=== PATIENT | female | born 1935 | race Caucasian/White ===

== ENCOUNTER 2021-10-17 16:47 | Emergency (ER) | payer OTHER ==
[~2021-10-17] VITALS: Ht 137.2 cm; Wt 41.7 kg
--- NOTE | ~2021-10-17 | EMS ---
[address] [address] EMS Patient Care Report Name: KAYE DOCKERY Room #: DEP LILIBETH Hartmann#: [id number] Admission: 10/17/21 Attend Phys: Discharge: 10/17/21 Date of : 34 Report #: [id number] THIS REPORT FOR: //name// Report Transmitted: 10/18/2021 00:37 EMS Care Summary [facility] MED-ACT Incident [id number] @ 10/17/2021 16:09 Incident Location [address] [place] [address] Patient KAYE DOCKERY Female, 86 Years 1935 Patient Address [address] [place] [address] Patient History Hypertension (HTN),Alzheimer's, Patient Medications Levothyroxine, Losartan, Amlodipine, Memantine, Chief Complaint head injury Disposition Transported No Lights/[place] Dispatch Reason Falls Transported To [facility] Narrative We were dispatched to the listed location for a fall. Upon our arrival, we found the patient lying on the floor and in the care of FD. The patient was alert and confused which is her baseline mental status. There was a small amount of blood on the back of the patient's head and floor. The patient is an 86 year old female who according to her family, slipped and [address] [address] EMS Patient Care Report Name: KAYE DOCKERY Room #: DEP ER [facility]#: [id number] Admission: 10/17/21 Attend Phys: Discharge: 10/17/21 Date of : 34 Report #: [id number] fell backwards. The patient struck the back of her head causing injury to the occiput. The patient has a history of Alzheimer's disease and is [place]ian speaking which created a significant barrier. The patient's family was able to communicate with her and they reported that the patient was at her baseline mental status. The patient did not lose consciousness, according to her family. The patient did not provide any information. While performing an exam, the patient did not provide any panful response. We were requested to transport the patient to [facility] for an evaluation and treatment. After an assessment and vitals, the patient was lifted off the floor to the cot. Then the patient was secured and transferred to the unit. There were no changes in her condition and care was transferred without incident. Initial Vitals @16:38P: 90,R: 16,BP: 170/85,SpO2: 98, @16:42P: 84,R: 16,BP: 152/85,SpO2: 98, @16:22P: 90,R: 16,BP: 161/92,SpO2: 98, @16:31P: 98,R: 16,BP: 193/88,Temp: 97.6F,SpO2: 98, Impression Injury Procedures @16:20 ALS Assessment Response: UnchangedSucceeded Timeline 16:07,Call Received 16:07,Psap Call 16:09,Dispatched 16:10,En Route 16:17,On Scene 16:19,At Patient 16:20,ALS Assessment,Response: UnchangedSucceeded, 16:22,BP: 161/92 M,PULSE: 90,RR: 16 R,SPO2: 98 Ox,ETCO2: ,BG: ,PAIN: ,GCS: , 16:31,BP: 193/88 M,PULSE: 98,RR: 16 R,SPO2: 98 Ox,ETCO2: ,BG: ,PAIN: ,GCS: , 16:34,Depart Scene 16:38,BP: 170/85 M,PULSE: 90,RR: 16 R,SPO2: 98 Ox,ETCO2: ,BG: ,PAIN: ,GCS: , 16:42,BP: 152/85 M,PULSE: 84,RR: 16 R,SPO2: 98 Ox,ETCO2: ,BG: ,PAIN: ,GCS: , 16:43,At Destination 17:02,Call Closed Disclaimer v1.1 Copyright 2021 [employer] This EMS Care Summary contains data elements from the applicable legal record [address] [address] EMS Patient Care Report Name: SARKISITZKAYE Room #: DEP LILIBETH Hartmann#: [id number] Admission: 10/17/21 Attend Phys: Discharge: 10/17/21 Date of : 34 Report #: [id number] (which may be displayed differently). It is designed to provide pertinent information for the following purposes: continuity of care, clinical quality, and state data reporting. The complete legal record is available to ED staff and administrators of the receiving hospital in [facility]'s Patient Tracker. All data is provided "as is."
--- NOTE | ~2021-10-17 | EMS ---
[address] [address] EMS Patient Care Report Name: KAYE DOCKERY Room #: DEP LILIBETH Hartmann#: [id number] Admission: 10/17/21 Attend Phys: Discharge: 10/17/21 Date of : 34 Report #: [id number] THIS REPORT FOR: //name// Report Transmitted: 10/17/2021 23:34 EMS Care Summary [facility] MED-ACT Incident [id number] @ 10/17/2021 16:09 Incident Location [address] [place] [address] Patient KAYE DOCKERY Female, 86 Years 1935 Patient Address [address] [place] [address] Patient History Hypertension (HTN),Alzheimer's, Patient Medications Levothyroxine, Losartan, Amlodipine, Memantine, Chief Complaint head injury Disposition Transported No Lights/[place] Dispatch Reason Falls Transported To [facility] Narrative We were dispatched to the listed location for a fall. Upon our arrival, we found the patient lying on the floor and in the care of FD. The patient was alert and confused which is her baseline mental status. There was a small amount of blood on the back of the patient's head and floor. The patient is an 86 year old female who according to her family, slipped and [address] [address] EMS Patient Care Report Name: KAYE DOCKERY Room #: DEP [facility]#: [id number] Admission: 10/17/21 Attend Phys: Discharge: 10/17/21 Date of : 34 Report #: [id number] fell backwards. The patient struck the back of her head causing injury to the occiput. The patient has a history of Alzheimer's disease and is Sudanese speaking which created a significant barrier. The patient's family was able to communicate with her and they reported that the patient was at her baseline mental status. The patient did not lose consciousness, according to her family. The patient did not provide any information. While performing an exam, the patient did not provide any panful response. We were requested to transport the patient to [facility] for an evaluation and treatment. After an assessment and vitals, the patient was lifted off the floor to the cot. Then the patient was secured and transferred to the unit. There were no changes in her condition and care was transferred without incident. Initial Vitals @16:38P: 90,R: 16,BP: 170/85,SpO2: 98, @16:42P: 84,R: 16,BP: 152/85,SpO2: 98, @16:22P: 90,R: 16,BP: 161/92,SpO2: 98, @16:31P: 98,R: 16,BP: 193/88,Temp: 97.6F,SpO2: 98, Impression Injury Procedures @16:20 ALS Assessment Response: UnchangedSucceeded Timeline 16:07,Call Received 16:07,Psap Call 16:09,Dispatched 16:10,En Route 16:17,On Scene 16:19,At Patient 16:20,ALS Assessment,Response: UnchangedSucceeded, 16:22,BP: 161/92 M,PULSE: 90,RR: 16 R,SPO2: 98 Ox,ETCO2: ,BG: ,PAIN: ,GCS: , 16:31,BP: 193/88 M,PULSE: 98,RR: 16 R,SPO2: 98 Ox,ETCO2: ,BG: ,PAIN: ,GCS: , 16:34,Depart Scene 16:38,BP: 170/85 M,PULSE: 90,RR: 16 R,SPO2: 98 Ox,ETCO2: ,BG: ,PAIN: ,GCS: , 16:42,BP: 152/85 M,PULSE: 84,RR: 16 R,SPO2: 98 Ox,ETCO2: ,BG: ,PAIN: ,GCS: , 16:43,At Destination 17:02,Call Closed Disclaimer v1.1 Copyright 2021 [employer] This EMS Care Summary contains data elements from the applicable legal record [address] [address] EMS Patient Care Report Name: SARKISKAYE Room #: DEP LILIBETH Hartmann#: [id number] Admission: 10/17/21 Attend Phys: Discharge: 10/17/21 Date of : 34 Report #: [id number] (which may be displayed differently). It is designed to provide pertinent information for the following purposes: continuity of care, clinical quality, and state data reporting. The complete legal record is available to ED staff and administrators of the receiving hospital in [facility]'s Patient Tracker. All data is provided "as is."
[2021-10-17 17:26] LABS: HEMATOCRIT 35.5 % (37.0-47.0); HEMOGLOBIN 11.3 gm/dL (12.0-15.0); MCH 27.1 pg (26.0-34.0); MCHC 31.9 g/dL (28.0-37.0); MCV 84.9 fL (80.0-100.0); RBC 4.18 mil/uL (4.20-5.00); RDW 15.4 % (10.5-14.5); WBC 5.5 thou/uL (4.0-11.0)
[2021-10-17 17:46] LABS: ANION GAP 12 mmol/L (7-16); BUN 21 mg/dL (7-18); CHLORIDE 110 mmol/L (98-107); CO2 25 mmol/L (21-32); CREATININE 0.9 mg/dL (0.6-1.0); GLUCOSE 117 mg/dL (74-106); POTASSIUM 3.9 mmol/L (3.5-5.1); SODIUM 147 mmol/L (136-145)
[2021-10-17 17:51] LABS: ALBUMIN 3.3 g/dL (3.4-5.0); MAGNESIUM 2.3 mg/dL (1.8-2.4); PHOSPHORUS 3.2 mg/dL (2.6-4.7); SALICYLATE < 2.8 mg/dL (2.8-20.0); SGOT 23 U/L (15-37); SGPT 22 U/L (14-59); TOTAL BILIRUBIN 0.3 mg/dL (0.2-1.0); TOTAL PROTEIN 7.8 g/dL (6.4-8.2)
[2021-10-17 21:41] VITALS: BP 141/57
--- NOTE | 2021-10-18 07:57 | EKG ---
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 : 1935 Requested By: Jean-Claude Cook Order Number: [id number] MD: Bhargav Etienne Measurements Intervals [place] Rate: 86 P: -1 SD: 140 QRS: -43 QRSD: 82 T: 267 QT: 512 QTc: 613 Interpretive Statements Sinus rhythm Abnormal R-wave progression, early transition Nonspecific ST and T wave abnormality Prolonged QT interval Baseline wander in lead(s) I,III No previous ECG available for comparison Electronically Signed On 10-18-2021 7:57:08 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
== END 2021-10-17 21:42 | disposition short-term general hospital (02) ==
LOC: ER 16:47
PROVIDERS: Emergency Medicine
DX: S06.5X0A Traumatic subdural hemorrhage without loss of consciousness, initial encounter (principal); Z20.822 Contact with and (suspected) exposure to COVID-19; W18.39XA Other fall on same level, initial encounter; Y93.89 Activity, other specified; Y92.89 Other specified places as the place of occurrence of the external cause; Y99.8 Other external cause status